=== PATIENT | male | born 1975 | race African-American/Black ===

== ENCOUNTER 2022-04-06 13:11 | Emergency (ER) | payer SELFPAY ==
[~2022-04-06] VITALS: Ht 175.3 cm; Wt 80.0 kg
[2022-04-06] MEDS ORDERED: NITROGLYCERIN 0.4MG TABLET SL SL PRN (14:00)
[2022-04-06] MEDS ORDERED: ASPIRIN 81MG TABLET PO ONE (14:00)
[2022-04-06 14:27] LABS: BASOPHILS % 1.2 % (0.0-2.0); EOSINOPHILS % 0.2 % (0.0-5.0); HEMATOCRIT. 43.3 % (42.0-52.0); HEMOGLOBIN. 14.7 g/dL (14.0-18.0); LYMPHOCYTES % 28.2 % (20.0-50.0); MEAN CORPUSCULAR HEMOGLOBIN 30.7 pg (28.0-32.0); MEAN CORPUSCULAR VOLUME 90.8 fL (80.0-94.0); MONOCYTES % 11.2 % (2.0-8.0); NEUTROPHILS % 59.2 % (40.0-76.0); PLATELET 223 x1000/uL (130-400); RED BLOOD CELL COUNT 4.77 mill/uL (4.7-6.1); RED CELL DISTRIBUTION WIDTH 13.6 % (11.6-14.6)
[2022-04-06 14:39] LABS: CHLORIDE 104 mEq/L (98-107)
[2022-04-06 19:50] VITALS: BP 160/107
== END 2022-04-06 20:05 | disposition home or self-care (01) ==
LOC: ER 15:02
DX: R07.89 Other chest pain (principal); R20.0 Anesthesia of skin; I10 Essential (primary) hypertension; Z87.891 Personal history of nicotine dependence; Z82.49 Family history of ischemic heart disease and other diseases of the circulatory system
CPT/HCPCS: 36415; 71045; 80053; 83605; 83690; 83880; 84484; 85025; 93005; 99285; Z7610